=== PATIENT | female | born 2000 | race Caucasian/White ===

== ENCOUNTER 2021-04-01 13:08 | Outpatient (REF) | payer OTHER, SELFPAY | END 2021-04-01 13:09 | disposition home or self-care (01) | LOC: HO.HMGCLDS 13:08 | PROVIDERS: Visit Provider Internal Medicine | DX: Z20.822 Contact with and (suspected) exposure to COVID-19 (principal) | CPT/HCPCS: C9803; U0003; U0005 ==

== ENCOUNTER 2025-02-13 19:51 | Emergency (ER) | payer OTHER, SELFPAY ==
--- NOTE | ~2025-02-13 | US_ITS ---
CLINICAL HISTORY: + test 2 weeks ago, abd px, vag bleeding US OB 1st trimester transabdominal Comparison: None provided Findings: There is no definite intra uterine identified. Uterus measures 7.1 x by 4.5 x 4.7 cm. Right ovary measures 3 x 2.7 x 1.8 cm. Left ovary measures 2.1 x 1.3 x 1.1 cm. Color Doppler evaluation of the ovaries was not performed. Endometrium measures 6 mm in maximum thickness. Suggestion of a somewhat heterogeneous left adnexal mass measuring 3.7 x 1.8 x 3.4 cm with central fluid-filled cavity. There is simple appearing free fluid present within the cul-de-sac. Impression: 1. No definite evidence of intrauterine gestation. 2. Somewhat heterogeneous left adnexal structure/mass measuring 3.7 x 1.8 x 3.4 cm with a central fluid-filled cavity. Given the provided clinical history, possibility of ectopic can not be excluded. These findings should be correlated with serum beta HCG levels. If indicated, continued sonographic surveillance should also be considered. 3. Additional findings as above. This document has been electronically signed by: Eunice Baker MD on 02/13/2025 21:06:52
--- NOTE | 2025-02-13 19:56 | ED_ITS ---
HPI - General Adult General Chief complaint: Abdominal Pain Stated complaint: abd pain,vaginal bleeding Time Seen by Provider: 02/13/25 20:28 Source: patient Mode of arrival: ambulatory Limitations: no limitations History of Present Illness ED Provider: Rylee Langford NP HPI narrative: Patient is a 24-year-old female , unclear LMP, reports of a child 14 months ago has a only spotted twice since then. Two weeks ago she had a positive test. Approximately 1 week ago she began with vaginal bleeding and associated clots. Over 3 days she has been having mid lower back pain/mid pelvic pain that ?radiates to my vagina?, pressure with urination. Today the pain became more constant and severe. Related Data Allergies Allergy/AdvReac Type Severity Reaction Status Date / Time No Known Allergies Allergy Unverified 02/13/25 20:04 Review of Systems 2 Review of Systems: Yes all other systems are reviewed and are negative PMFSH Past Medical History Attestation statement: The following information was validated with the patient. Source: old records reviewed Social History Social History Smoked in Last 30 Days: Yes Advance Directives: No Advance Directives Information Provided: No Patient : Yes Physical Exam ED Vital Signs: Vital Signs - 24 hr 02/13/25 19:57 02/13/25 22:16 02/14/25 00:10 Temperature 97.2 F 0 F L Pulse Rate 120 H 76 70 Respiratory Rate 22 H 20 16 Blood Pressure 133/73 96/55 L 96/55 L Pulse Oximetry 94 99 99 Oxygen Delivery Method Room Air Room Air Room Air BMI result Body Mass Index 2812.0 Appearance: Alert.?Oriented to person, place and time. No acute distress.?Normal affect.? CVS: Heart sounds normal. Normal heart rate and rhythm.? Pulses normal.?? Respiratory: No respiratory distress.? Lung sounds clear to auscultation bilaterally?? Abdomen: Soft with diffuse lower abdominal tenderness upon palpation. No CVAT Normoactive bowel sounds. ? Skin: Skin warm and dry.? Normal skin color.? Extremities: No lower extremity edema.? Neuro: Moves all extremities spontaneously. Sensation intact bilaterally. Ambulates with normal steady gait. Course Course Course Narrative: This is an RME: Additional HPI, ROS, PE not included below will be deferred to primary provider. RME assessment and note performed by: Mustapha Alas PA-C 24 yo G3 presents to ED today due to 2 days of abdominal pain, flank pain and vaginal bleeding which started day night. +preg test 2 weeks ago. States she is going through many pads to control bleeding. States pain has been worsening today. Patient tearful and uncomfortable in triage PE: TTP over suprapubic region, lumbar paraspinal muscles TTP, no CVA tenderness Plan: US, labs, UA Reevaluation(s) Reevaluation #1: Received call from [facility] regarding concerning findings on ultrasound for potential ectopic . No evidence of rupture on ultrasound, she is however exquisitely tender, in a semi- position reporting significant pain. I will reach out to OBGYN doctor Jeison via [employer] Time: 21:20 Reevaluation #2: Dr. Mchugh, spoke with him on phone, he will come to the emergency department for examination of the patient determination as to whether she will be treated with methotrexate versus surgical option. Time: 21:41 Reevaluation #3: Dr. Mchugh at bedside for evaluation. She was advised of his recommendation for surgical intervention at this time she adamantly declined surgical intervention, she was given potential risks and complications of ectopic if not treated. He did discuss with the alternatively methotrexate. Unfortunately, she is not able to receive methotrexate at this hospital, therefore I will contact [facility] for transfer. She did become quite upset, reporting that she needed to get home to her children, was contemplating leaving against medical advice, she was made aware by Dr. Mchugh as well as myself that leaving against medical advice could result in . It was imperative that she have this ectopic treated appropriately. She is agreeable to staying, at this time she is willing to have transfer to [facility]. Time: 22:14 Additional Reevaluation(s): Difficulty making contact with rate transfer, OBGYN involved in surgery currently. 23:30 - spoke with OBGYN from [facility], Dr. Schilling, who advises the patient may be transferred to [facility] for methotrexate administration. Patient made aware of pending transfer, awaiting EMS transport 23:53 - nursing staff have advised me that patient eloped from the department. She had brought herself by wheelchair towards the exit doors, had self removed her IV catheter in the room. Exited the department. She was not found in the waiting room, she is not out fron of the ER. Unfortunately, was not able to speak with the patient again Medications Administered Discontinued Medications Generic Name Dose Route Start Last Admin Trade Name Ava PRN Reason Stop Dose Admin Morphine Sulfate 1 mg 02/13/25 21:40 02/13/25 21:56 Morphine Sulfate 2 Mg/Ml Cartridge IVPUSH 02/13/25 21:41 Not Given ONCE ONE Protocol Ondansetron HCl 4 mg 02/13/25 21:40 02/13/25 21:56 Ondansetron Hcl 4 Mg/2 Ml Vial IVPUSH 02/13/25 21:41 Not Given ONCE ONE Medical Decision Making Medical Decision Making [facility] Narrative: Patient is a 24-year-old female presents emergency department for evaluation of mid lower back and abdominal pain with associated vaginal bleeding and presence of clots as per HPI in the setting of . She had workup started prior to my assumption of care; CBC without leukocytosis, no significant anemia current H&H of 12.2/34 in the setting of bleeding over the past week, no thrombocytopenia. No electrolyte derangement. No LEONIDES. LFTs unremarkable. HCG is 8893. She is pending pelvic ultrasound at this time. Differential including ectopic , missed , threatened , urinary tract infection, STI. Patient declines an internal pelvic examination Differential Diagnosis Differential Diagnoses: The differential diagnosis associated with the presentation includes (See narrative above) Admission/Observation Consideration of admission/observation: Escalation of care including admission/observation considered Lab Data [facility] Lab Attestation statement: I reviewed the patient's lab results. (See narrative above) 02/13/25 20:37 02/13/25 20:37 Labs: Lab Results 02/13/25 02/13/25 Range/Units 20:37 21:16 WBC 8.6 (4.8-10.8) X10*3/uL RBC 3.70 L (4.20-5.50) X10*6/uL Hgb 12.2 (12.0-16.0) g/dl Hct 34.0 L (37.0-47.0) % MCV 91.9 (80.0-98.0) fL MCH 33.0 (27.0-33.0) pg MCHC 35.9 H (31.0-35.0) g/dl RDW 12.4 (11.0-16.0) % Plt Count 162 (160-400) X10*3/uL MPV 11.3 (9.4-12.3) fL Immature Gran % (Auto) 0.5 H (0.0-0.4) % Neut % (Auto) 63.0 (45-73) % Lymph % (Auto) 26.6 (20-40) % [place] % (Auto) 6.9 (2-11) % Eos % (Auto) 2.4 (0-4) % Baso % (Auto) 0.6 (0-2) % Lymph # (Auto) 2.3 (1.2-4.9) X10*3/uL [place] # (Auto) 0.6 (0.1-1.2) X10*3/uL Eos # (Auto) 0.2 (0.0-0.4) X10*3/uL Baso # (Auto) 0.1 (0.0-0.2) X10*3/uL Abs Immat Gran (auto) 0.04 H (0.00-0.03) X10*3/uL Absolute Neuts (auto) 5.4 (2.0-8.3) x10*3/uL Absolute Nucleated RBC 0.000 (0.0-0.012) X10*3/uL Nucleated RBC % (auto) 0.0 (0.0-0.2) /100WBC PT 12.3 (10.9-12.4) SEC INR 1.1 (0.9-1.1) Sodium 139 (135-145) mmol/L Potassium 3.6 (3.3-5.1) mmol/L Chloride 106 (96-108) mmol/L Carbon Dioxide 25 (22-29) mmol/L Anion Gap 12 (12-20) BUN 11 (9-16) mg/dL Creatinine 0.87 (0.5-1.4) mg/dL Estim Creat Clear Calc -47.5 Estimated GFR > 60 Random Glucose 140 H (60-115) mg/dL Calcium 9.0 (8.4-10.2) mg/dL Total Bilirubin 0.3 (0.0-1.0) mg/dL AST 27 (5-31) U/L ALT 15 (0-31) U/L Alkaline Phosphatase 71 (39-117) U/L Total Protein 7.1 (6.5-8.0) g/dL Albumin 4.7 (3.5-5.0) g/dL Beta HCG, Quant 8893 mIU/mL Urine Color RED Urine Appearance Clear Urine pH 6.0 (5.0-9.0) Ur Specific [place] 1.025 (1.005-1.025) Urine Protein 300 (3+) H (Neg-Trace) mg/dL Urine Glucose (UA) Negative (Negative) mg/dL Urine Ketones Trace (Negative) mg/dL Urine Blood Large (3+) H (Negative) Urine Nitrite Negative (Negative) Ur Leukocyte Esterase Negative (Negative) Urine RBC >20 H (0-2) /HPF Urine WBC 0-5 (0-5) /HPF Ur Squamous Epith Cells 6-10 (0-2) /HPF Urine Bacteria Trace (None Seen) Hyaline Casts 0-2 (0-2) /LPF Radiology Impression Discussion of test interpretation with radiology: I have reviewed the radiologist's reading. Radiologist Impression: Impression: pelvic US 1. No definite evidence of intrauterine gestation. 2. Somewhat heterogeneous left adnexal structure/mass measuring 3.7 x 1.8 x 3.4 cm with a central fluid-filled cavity. Given the provided clinical history, possibility of ectopic can not be excluded. These findings should be correlated with serum beta HCG levels. If indicated, continued sonographic surveillance should also be considered. 3. Additional findings as above. Discharge Plan Discharge Clinical Impression: Ectopic Patient Disposition: Left Against Medical Advice Instructions: Ectopic (DC) Stand Alone Forms: Against Medical Advice Interventions: ED Discharge Assessment Last Done: 02/14/25 00:10 Discharge Date/Time: 02/14/25 00:14 Print Language: [place]
[2025-02-13 19:57] VITALS: BP 133/73; PULSE 120; RESP 22; TEMP 36.2; O2SAT 94; BMI 2812.0
[2025-02-13 20:43] LABS: MANUAL DIFF FLAG NO
[2025-02-13 20:45] LABS: Basophils Absolute Auto 0.1 X10*3/uL (0.0-0.2); Basophils Percent Auto 0.6 % (0-2); Eosinophils Absolute Auto 0.2 X10*3/uL (0.0-0.4); Eosinophils Percent Auto 2.4 % (0-4); Hemoglobin 12.2 g/dl (12.0-16.0); Imm Gran Abs Auto 0.04 X10*3/uL (0.00-0.03); Imm Gran Pct Auto 0.5 % (0.0-0.4); Lymphocytes Absolute Auto 2.3 X10*3/uL (1.2-4.9); Lymphocytes Percent Auto 26.6 % (20-40); Mean Corpuscular HGB Conc 35.9 g/dl (31.0-35.0); Mean Corpuscular Volume 91.9 fL (80.0-98.0); Mean Platelet Volume 11.3 fL (9.4-12.3); Monocytes Absolute Auto 0.6 X10*3/uL (0.1-1.2); Monocytes Percent Auto 6.9 % (2-11); Neutrophils Absolute Auto 5.4 x10*3/uL (2.0-8.3); Platelet Count 162 X10*3/uL (160-400); Red Cell Distribution Width 12.4 % (11.0-16.0); White Blood Count 8.6 X10*3/uL (4.8-10.8)
--- NOTE | 2025-02-13 20:48 | PC.NURSE ---
18g IV placed in left forearm, CBC, PT/INR, CMP drawn and sent to lab
--- OUTSIDE RECORDS SUMMARY | 2025-02-13 20:55 | XMS_ITS | Encounter Summary ---
Author Organization [facility] Address [address] [place] [phone] Phone Care Team Providers Care Public Works Commissioner Name Role Phone Kush Fraser MD Primary Care Provider [phone] Encounter Details Date Type Department Care Team (Late st Contact Info) Description 12/21/2010 Conversion Encounter [facility] [address] [place] [address] Dr Montejo KATHERINE [id number] Social History Tobacco Use Types Packs/Day Years Used Date Smoking Tobacco: Never Assessed Comments Unknown Sex and Gender Information Value Date Recorded Sex Assigned at Not on file Legal Sex Female 6:33 PM EDT Gender Identity Not on file Sexual Orientation Not on file documented as of this encounter Plan of Treatment Not on file documented as of this encounter Visit Diagnoses Not on filedocumented in this encounter Care Teams Public Works Commissioner Relationship Specialty Start Date End Date Kush Fraser MD [facility] [facility] [place] [address] PCP - General 12/28/17 documented as of this encounter
[2025-02-13 20:56] LABS: INTERNATIONAL NORM RATIO 1.1 (0.9-1.1); Prothrombin Time 12.3 SEC (10.9-12.4)
--- NOTE | 2025-02-13 21:01 | MHC.EDTECH ---
unable to draw type and screen. pt refused redraw. rn aware and analysis or research safety inspector bari aware.
[2025-02-13 21:04] LABS: Alanine Aminotransferase 15 U/L (0-31); Albumin Level 4.7 g/dL (3.5-5.0); Alkaline Phosphatase 71 U/L (39-117); Anion Gap 12 (12-20); Aspartate Amino Transferase 27 U/L (5-31); Bilirubin Total 0.3 mg/dL (0.0-1.0); Blood Urea Nitrogen 11 mg/dL (9-16); Carbon Dioxide 25 mmol/L (22-29); Chloride 106 mmol/L (96-108); Estimated Glomerular Filt Rate > 60; Glucose Random 140 mg/dL (60-115); HCG Quantitative 8893 mIU/mL; Potassium 3.6 mmol/L (3.3-5.1); Sodium 139 mmol/L (135-145); Total Protein 7.1 g/dL (6.5-8.0)
[2025-02-13 21:35] LABS: Appearance Urine Clear; Glucose Urine UA Negative (Negative); Leukocyte Esterase Urine Negative (Negative); Nitrite Urine Negative (Negative); Specific Gravity - Urine 1.025 (1.005-1.025); UMIC TRIGGER UACC YES; Urine Blood Large (3+) (Negative); Urine Ketones Trace mg/dL (Negative); Urine Protein 300 (3+) mg/dL (Neg-Trace)
--- NOTE | 2025-02-13 21:39 | P.CONOB_ITS ---
ECONOMIC DEVELOPMENT COORDINATOR - CN: HPI Data of Consult Consult date: 02/13/25 Primary Care Provider: Unknown Physician Consult Narrative Narrative: I was consulted on Radha Mcguire who is a 24 year old , unknown LMP, presenting to emergency room complaining of pelvic pain and vaginal bleeding of 1 week duration. Urine test taken 2 weeks ago was positive. The patient has started having vaginal bleeding over the last week and start having mid lower back pain/mid pelvic pain of the last 3 days, which has gotten worse today. Pelvic ultrasound done in emergency room showed the following: There is no definite intra uterine identified. Uterus measures 7.1 x by 4.5 x 4.7 cm. Right ovary measures 3 x 2.7 x 1.8 cm. Left ovary measures 2.1 x 1.3 x 1.1 cm. Color Doppler evaluation of the ovaries was not performed. Endometrium measures 6 mm in maximum thickness. Suggestion of a somewhat heterogeneous left adnexal mass measuring 3.7 x 1.8 x 3.4 cm with central fluid-filled cavity. There is simple appearing free fluid present within the cul-de-sac. Impression: 1. No definite evidence of intrauterine gestation. 2. Somewhat heterogeneous left adnexal structure/mass measuring 3.7 x 1.8 x 3.4 cm with a central fluid-filled cavity. Given the provided clinical history, possibility of ectopic can not be excluded. These findings should be correlated with serum beta HCG levels. If indicated, continued sonographic surveillance should also be considered. 3. Additional findings as above. cc:: CC: OB [facility], [facility] Social History Social History Smoked in Last 30 Days: Yes Advance Directives: No Advance Directives Information Provided: No Patient : Yes Meds Allergies Allergy/AdvReac Type Severity Reaction Status Date / Time No Known Allergies Allergy Unverified 02/13/25 20:04 ECONOMIC DEVELOPMENT COORDINATOR Physical Exam Vitals Vital signs: Temp Pulse Resp BP Pulse Ox O2 Del Method 97.2 F 120 H 22 H 133/73 94 Room Air 02/13/25 19:57 02/13/25 19:57 02/13/25 19:57 02/13/25 19:57 02/13/25 19:57 02/13/25 19:57 BMI result Body Mass Index 2812.0 Abdomen Auscultation/Inspection/Palpation: Soft, Non-distended, No CVA tenderness and Tenderness (Mild lower pelvic tenderness, no guarding or rebound) Female Genitalia (Pelvic) Exam: Declined by Patient ECONOMIC DEVELOPMENT COORDINATOR - Results Labs 02/13/25 20:37 02/13/25 20:37 Labs: Short CBC 02/13/25 Range/Units 20:37 WBC 8.6 (4.8-10.8) X10*3/uL Hgb 12.2 (12.0-16.0) g/dl Hct 34.0 L (37.0-47.0) % Plt Count 162 (160-400) X10*3/uL BMP 02/13/25 20:37 Sodium 139 Potassium 3.6 Chloride 106 Carbon Dioxide 25 BUN 11 Creatinine 0.87 Calcium 9.0 Liver Function 02/13/25 Range/Units 20:37 Total Bilirubin 0.3 (0.0-1.0) mg/dL AST 27 (5-31) U/L ALT 15 (0-31) U/L Alkaline Phosphatase 71 (39-117) U/L Albumin 4.7 (3.5-5.0) g/dL Assessment and Plan (1) Ectopic : Status: Acute Plan Recommended to JAREK Perera : Rh status Explained to the patient the importance of the pelvic exam as part of evaluation for ectopic , the patient declined Discussed with the patient the following findings: HCG 8893, above the 3500 the level where intrauterine should be identified by ultrasound in high percentage of patients.? In addition, pelvic US showed no evidence of intrauterine and presence of a left adnexal mass measuring 3.7 cm with simple fluid in the cul-de-sac pointing towards possibility of ectopic , with possible SAB is still a possibility. ?Explained to the patient that since she is having pain in the pelvic ultrasound is showing fluid in the cul-de-sac, there is a suspicion of early tubal rupture of ectopic , therefore, recommended to the patient to proceed with laparoscopy with a possible salpingostomy/salpingectomy and suction D&C.? After all the pros and cons, risks and benefits of the procedure were discussed with the patient declined surgical management stating that she has no baby sitting available for her at home for her kids and she requested to sign against medical advice and leave the emergency room.? Explained to the patient that ectopic could lead to her because of the high-risk of tubal rupture leading to intra-abdominal bleeding.? The patient requested to be evaluated for alternative medical treatment. Explained to the patient that [facility] does not have certified nurses for methotrexate injections, therefore recommended to the patient to be transferred to [facility] for further evaluation with the possibility of methotrexate treatment.? The patient understands that she might not be a candidate for methotrexate treatment and may require emergent surgical management.? All questions answered, the patient verbalized understanding and agreed with the plan I was informed by JAREK Perera [facility] that the patients transfer was accepted at 11:[address] Schilling at [facility]
[2025-02-13 21:40] LABS: Color Urine RED
[2025-02-13 22:13] LABS: Bacteria Urine Trace (None Seen); Hyaline Casts Urine 0-2 /LPF (0-2); WBC Urine 0-5 /HPF (0-5)
[2025-02-13 22:16] VITALS: BP 96/55; PULSE 76; RESP 20; O2SAT 99
[2025-02-13 22:19] LABS: RBC Urine >20 /HPF (0-2)
--- NOTE | 2025-02-14 00:07 | PC.NURSE ---
Patient propelled herself in a w/c towards the exit door. This RN attempted to talk to patient and instruct her to stay and wait EMS for transport to [facility] to manage ectopic . Patient is aware of risks of leaving AMA including , she self removed IV line and left. Patient is alert and oriented x4, she is able to make her decisions and make her needs known. Patient ambulated out of the ER with a steady gait. Maura, chargeback analyst and Rylee, ED provider are aware. [facility] notified of ptatient leaving AMA, transport to [facility] cancelled.
[2025-02-14 00:10] VITALS: BP 96/55; PULSE 70; RESP 16; TEMP -17.7; TEMP 0; O2SAT 99
== END 2025-02-14 00:14 | disposition left against medical advice (07) ==
PROVIDERS: Emergency Provider Internal Medicine
DX: O00.90 Unspecified ectopic pregnancy without intrauterine pregnancy (principal); R10.2 Pelvic and perineal pain; Z79.899 Other long term (current) drug therapy
CPT/HCPCS: 36415; 76801; 76817; 80053; 81001; 84702; 85025; 85610; 99284; J2270; J2405

== ENCOUNTER → 2025-02-13 19:59 | Outpatient (BNV) | payer OTHER, SELFPAY | PROVIDERS: Emergency Provider Internal Medicine; Visit Provider Radiology Diagnostic Radiology | DX: N93.9 Abnormal uterine and vaginal bleeding, unspecified (principal); Z3A.14 14 weeks gestation of pregnancy | CPT/HCPCS: 76801; 76817 ==

== ENCOUNTER → 2025-02-13 20:44 | Outpatient (BNV) | payer OTHER, SELFPAY | PROVIDERS: Emergency Provider Internal Medicine; Visit Provider Obstetrics & Gynecology | DX: O00.90 Unspecified ectopic pregnancy without intrauterine pregnancy (principal) | CPT/HCPCS: 99283 ==